=== PATIENT | male | born 1995 | race African-American/Black ===

== ENCOUNTER 2022-05-09 02:47 | Emergency (ER) | payer OTHER ==
[~2022-05-09] VITALS: Ht 177.8 cm; Wt 73.0 kg
[2022-05-09 02:53] VITALS: BP 146/90
== END 2022-05-09 06:43 | disposition left against medical advice (07) ==
LOC: ER 02:47
DX: Z53.21 Procedure and treatment not carried out due to patient leaving prior to being seen by health care provider (principal); G50.1 Atypical facial pain; R51.9 Headache, unspecified